=== PATIENT | male | born 1960 | race African-American/Black ===

== ENCOUNTER 2018-12-31 20:59 | Emergency (ER) ==
[2018-12-31 21:15] VITALS: BP 133/80; TEMP 96.8; BMI 22.8
[2018-12-31] MEDS ORDERED: SODIUM CHLORIDE 1,000 ML IV STA (21:26)
--- NOTE | 2018-12-31 23:07 | ED.PDOC ---
General ED Provider: Dr. ARACELI MCADAMS-ER Chief Complaint: Weakness Stated Complaint: ' i think i overdid it--went walking in heat and humidity today and got overheated Time Seen by Physician: 21:05 Mode of Arrival: Wheelchair Information Source: Patient Exam Limitations: No limitations Primary Care Provider: DEEP WHITT Nursing and Triage Documentation Reviewed and Agree: Yes Does patient meet sepsis criteria?: No System Inflammatory Response Syndrome: Not Applicable Sepsis Protocol: For patient's 13 years and over: Temp is 96.8 and below OR 101 and greater Pulse >90 BPM Resp >20/minute Acutely Altered Mental Status Are patient's symptoms suggestive of a new infection, such as: -Pneumonia -Skin, Soft Tissue -Endocarditis -UTI -Bone, Joint Infection -Implantable Device -Acute Abdominal Infection -Wound Infection -Meningitis -Blood Stream Catheter Infection -Unknown Miscellaneous Complaint Exam - Complex/Multi-System Complaint/Exam Onset/Duration: an hour Symptoms Are: Still present Initial Severity: Mild Current Severity: Mild Location of Pain: no pain Associated Signs and Symptoms: Reports: Weakness. Denies: Decreased responsiveness, Confusion, Agitation, Dizziness, Syncope, Headache, Short of air , Cough, Wheezing, Hemoptysis, Chest pain, Palpitations, Edema, Nausea, Vomiting , Diarrhea, Abdominal pain, Back pain, Dysuria, Hematemesis, Melena, Decreased oral intake, Fever, Diaphoresis, Immunocompromised, Anticoagulation Therapy, Recent medication changes, Indwelling medical scheduler, Prior MRSA, Prior VRE, Recent trauma, Remote trauma Recent Echo/LV Function: No JVD Present: No Tachypnea Present: No Stridor Present: No Abdominal Findings: Present: Normal findings Glascow Coma Scale (see protocol): 15 Meningeal Signs Positive: No Focal Weakness: Present: None Focal Sensory Loss: Present: None Gait: Normal Gag Reflex Present: No Babinski Sign: Negative Right, Negative Left Skin Findings: Present: Normal findings Joint Swelling Present: No In-Dwelling Device Present: No Differential Diagnosis: Metabolic Abnormality, Other Quality Indicator For Non-Traumatic Chest Pain/Syncope: EKG Performed Review of Systems - Review Of Systems Constitutional: Reports: Weakness Eyes: Reports: No symptoms Ears, Nose, Mouth, Throat: Reports: No symptoms Respiratory: Reports: No symptoms Cardiac: Reports: No symptoms GI: Reports: No symptoms : Reports: No symptoms Musculoskeletal: Reports: No symptoms Skin: Reports: No symptoms Neurological: Reports: No symptoms Endocrine: Reports: No symptoms Hematologic/Lymphatic: Reports: No symptoms All Other Systems: Reviewed and Negative Past Medical History - Past Medical History Previously Healthy: No Endocrine: Reports: Unknown Cardiovascular: Reports: Unknown Respiratory: Reports: Other Hematological: Reports: Anemia Gastrointestinal: Reports: Liver Genitourinary: Reports: Unknown Neuro/Psych: Reports: Unknown Musculoskeletal: Reports: Unknown Cancer: Reports: Unknown - Surgical History General Surgical History: Reports: Unknown - Family History Family History: Reports: Unknown - Social History Smoking Status: Never smoker Hx Substance Use: No Alcohol Screening: None - Immunizations Tetanus Shot up to Date: No (unknown) Physical Exam - Physical Exam Appearance: Well-appearing, No pain distress, Well-nourished Eyes: HEIDI, EOMI, Conjunctiva clear ENT: Ears normal, Nose normal, Oropharynx normal Neck: Supple Respiratory: Airway patent, Breath sounds clear, Breath sounds equal, Respirations nonlabored Cardiovascular: RRR, Pulses normal, No rub, No murmur GI/: Soft, Nontender, No masses, Bowel sounds normal, No Organomegaly Musculoskeletal: Normal strength Skin: Warm, Dry, Normal color Neurological: Sensation intact, Motor intact, Reflexes intact, Cranial nerves intact, Alert, Oriented Psychiatric: Affect appropriate, Mood appropriate Interpretation - EKG Interpretation Time of EKG #1: 23:08 Rate: Normal Rhythm: Sinus Ectopy: None Gal[place]: NL ST Segment: Normal Interpretation: nsr Re-Evaluation - Re-Evaluation Time of Re-Evaluation: 23:08 Status: Improved Vital Signs Stable: Yes Pain Level: 0 Appearance: NAD Lungs: Clear Skin: Warm and Dry Neuro: Alert and Oriented X3 CV: RRR Additional Comments: feeling much better Critical Care Note - Critical Care Note Total Time (mins): 0 Course - Course Hematology/Chemistry: 12/31/18 21:30 12/31/18 21:30 Orders, Labs, Meds: Lab Review 12/31/18 12/31/18 12/31/18 21:26 21:30 21:30 WBC 5.06 RBC 3.87 L Hgb 11.7 L Hct 35.9 L MCV 92.8 MCH 30.2 MCHC 32.6 RDW Coeff of Rg 14.1 Plt Count 190 Immature Gran % (Auto) 0.8 Neut % (Auto) 72.3 Lymph % (Auto) 16.8 [place] % (Auto) 8.5 Eos % (Auto) 0.8 Baso % (Auto) 0.8 Immature Gran # (Auto) 0.0 Neut # (Auto) 3.7 Lymph # (Auto) 0.9 [place] # (Auto) 0.4 Eos # (Auto) 0.0 Baso # (Auto) 0.0 Sodium 139.6 Potassium 3.80 Chloride 103.5 Carbon Dioxide 25.7 Anion Gap 14.20 BUN 22.7 H Creatinine 0.95 Estimated GFR (MDRD) 99.00 BUN/Creatinine Ratio 23.89 Glucose 106.9 H Calcium 9.17 Total Bilirubin 0.95 AST 85.6 H ALT 70.6 H Alkaline Phosphatase 474.1 H Total Creatine Kinase 49.6 L Troponin I < 0.012 Total Protein 7.28 Albumin 4.14 Globulin 3.14 Albumin/Globulin Ratio 1.31 Urine Color Urine Clarity Urine pH Ur Specific [place] Urine Protein Urine Glucose (UA) Urine Ketones Urine Blood Urine Nitrite Urine Bilirubin Urine Urobilinogen Ur Leukocyte Esterase Urine Microscopic RBC Ur Squamous Epith Cells Urine Mucus 12/31/18 22:25 WBC RBC Hgb Hct MCV MCH MCHC RDW Coeff of Rg Plt Count Immature Gran % (Auto) Neut % (Auto) Lymph % (Auto) [place] % (Auto) Eos % (Auto) Baso % (Auto) Immature Gran # (Auto) Neut # (Auto) Lymph # (Auto) [place] # (Auto) Eos # (Auto) Baso # (Auto) Sodium Potassium Chloride Carbon Dioxide Anion Gap BUN Creatinine Estimated GFR (MDRD) BUN/Creatinine Ratio Glucose Calcium Total Bilirubin AST ALT Alkaline Phosphatase Total Creatine Kinase Troponin I Total Protein Albumin Globulin Albumin/Globulin Ratio Urine Color Yellow Urine Clarity Clear Urine pH 6.0 Ur Specific [place] 1.020 Urine Protein Negative Urine Glucose (UA) Negative Urine Ketones Negative Urine Blood Trace-intact Urine Nitrite Negative Urine Bilirubin Negative Urine Urobilinogen 1.0 Ur Leukocyte Esterase Negative Urine Microscopic RBC 0-2 Ur Squamous Epith Cells 2-5 Urine Mucus 2+ Orders Category Date Time Status EKG-(ED ONLY) Stat CARDIO 12/31/18 21:25 Completed ED ADMINISTRATIVE STAFF SUPERVISOR APPLIED .ONCE EMERGENCY 12/31/18 21:25 Active ED IV/MEDIPORT/POWERPORT .ONCE EMERGENCY 12/31/18 21:26 Active CBC W/ AUTO DIFF Stat LAB 12/31/18 21:30 Completed COMPREHENSIVE METABOLIC PANEL Stat LAB 12/31/18 21:30 Completed CREATINE KINASE Stat LAB 12/31/18 21:26 Completed TROPONIN I Stat LAB 12/31/18 21:26 Completed URINALYSIS C & S IF INDICATED Stat LAB 12/31/18 22:25 Completed 0.9 % Sodium Chloride [Saline Flush] MEDS 12/31/18 21:25 Ordered 1 syr IVF PRN PRN Sodium Chloride 0.9% [Sodium Chloride] 1,000 ml MEDS 12/31/18 21:26 Discontinued IV BOLUS Medications Generic Name Dose Route Start Last Admin Trade Name Freq PRN Reason Stop Dose Admin Sodium Chloride 1 syr 12/31/18 21:25 Saline Flush IVF PRN PRN To flush IV Discontinued Medications Generic Name Dose Route Start Last Admin Trade Name Freq PRN Reason Stop Dose Admin Sodium Chloride 1,000 mls @ 1,000 mls/hr 12/31/18 21:26 12/31/18 22:07 Sodium Chloride IV 12/31/18 22:25 1,000 mls/hr BOLUS STA Administration Vital Signs: Temp Pulse Resp BP Pulse Ox 12/31/18 21:00 96.8 F L 97 H 20 133/80 97 Departure - Departure Time of Disposition: 23:08 Disposition: HOME SELF-CARE Discharge Problem: Heat exhaustion Qualifiers: Encounter type: initial encounter Qualified Code(s): T67.5XXA - Heat exhaustion , unspecified, initial encounter Instructions: Heat Exhaustion (ED) Condition: Good Pt referred to PMD for follow-up: Yes IPMP verified?: No Allergies/Adverse Reactions: Allergies No Known Allergies Allergy (Unverified 12/31/18 21:15) Home Medications: Ambulatory Orders Lisinopril 10 mg PO DAILY 12/31/18 Omeprazole [Prilosec] 20 mg PO QDAC 12/31/18 Disposition Discussed With: Patient, Family
== END 2018-12-31 23:14 | disposition home or self-care (01) ==
LOC: ED 20:59
DX: T67.5XXA Heat exhaustion, unspecified, initial encounter (principal); R53.1 Weakness
CPT/HCPCS: 36415; 80053; 81001; 82550; 84484; 85025; 93005; 93010; 96360; 99283

== ENCOUNTER 2019-06-08 11:18 | Inpatient (IN) ==
[2019-06-08] MEDS ORDERED: LACTATED RINGERS 1,000 ML IV STA (11:29)
[2019-06-08 11:44] LABS: HEMATOCRIT 38.9 % (42.0-52.0)
[2019-06-08] MEDS ORDERED: VASOTEC IV IVP STA (13:10)
--- NOTE | 2019-06-08 13:33 | CT ---
EXAM: CT of the abdomen pelvis with contrast History: Abdominal pain and fever. Comparison: Chest CT 06/08/2019 Technique: Multiplanar CT images through the abdomen pelvis were obtained following administration o f IV contrast Findings: Lung bases are clear. No acute osseous abnormalities. Abnormal heterogeneous appearance of the bones with areas of sclerosis and lucency and chronic-appearing compression deformities within the lower thoracic and lumbar spine. Moderate to severe irregular intrahepatic biliary ductal dilatation. There is a biliary stent seen w hich could be malpositioned test. The stent seen as more proximal than would be expected if this was a common bile duct stent. Pancreas demonstrates no abnormality. Adrenal glands are normal. No rock al masses. 1 cm hypoattenuating lesion within the spleen. No bowel obstruction. No bladder wall th ickening. Prostate is not enlarged. Moderate stool seen distending the rectum. No free air and no ascites. No abdominal aortic aneurysm. No pathologically enlarged lymph nodes. Impression: 1. Intrahepatic biliary ductal dilatation with biliary stent seen in place. There may be underlying cholangitis and there could be an obstructing biliary mass versus malfunctioning stent. Recommend c onsult with physician who placed the stent. 2. No other significant findings
--- NOTE | 2019-06-08 13:38 | ED.PDOC ---
General ED Provider: Dr. LOS PHILLIP Chief Complaint: Weakness Stated Complaint: syncope Time Seen by Physician: 11:20 Mode of Arrival: Stretcher Information Source: Patient Primary Care Provider: DEEP WHITT Nursing and Triage Documentation Reviewed and Agree: Yes Does patient meet sepsis criteria?: No System Inflammatory Response Syndrome: Not Applicable Sepsis Protocol: For patient's 13 years and over: Temp is 96.8 and below OR 101 and greater Pulse >90 BPM Resp >20/minute Acutely Altered Mental Status Are patient's symptoms suggestive of a new infection, such as: -Pneumonia -Skin, Soft Tissue -Endocarditis -UTI -Bone, Joint Infection -Implantable Device -Acute Abdominal Infection -Wound Infection -Meningitis -Blood Stream Catheter Infection -Unknown Neurological Complaint Exam Syncope/Near Syncope Complaint/Exam Onset/Duration: last night he was on the floor for a few hours he denied falling , denied Symptoms Are: Resolved (aox3 upon arrival ) Episodes Lasting: Seconds Number of Episodes: 1 Frequency of Episodes: 1 Episodes Witnessed: No Associated Head Trauma: No Activity at Onset: At rest Aggravating: None Alleviating: Reports Spontaneous resolution Associated Signs and Symptoms: Denies Pain, Decreased oral intake, Vomiting, Diarrhea, GI blood loss, Short of air, Chest pain, Palpitations, Diaphoresis, Lightheadedness, Dizziness, Weakness, AMS, Numbness, Headache (has a history of aneurysm may have had h/a but no pain on arrival), Seizure, Remote head trauma and Recent head trauma Cardiac Risk Factors: Reports Hypertension GI Bleed Risk Factors: Reports None Dysrhythmia Risk Factors: Reports >45 years old and Underlying CAD Related Surgical History: Reports None JVD Present: No Carotid Bruit Present: No Rectal Heme Positive: No Glascow Coma Scale (see protocol): 15 Nystagmus Present: No Gag Reflex Present: Yes Meningeal Signs Positive: No Focal Weakness: Present None Focal Sensory Loss: Present None Gait: Normal [id number]: Normal Findings Babinski Sign: Negative Right and Negative Left Differential Diagnoses: Dysrhythmia, Hypoglycemia, Hypovolemia, Metabolic Reaction, Pulmonary Embolism and Seizure Quality Indicators for Cardiac Chest Pain: EKG in 10min. Quality Indicator For Non-Traumatic Chest Pain/Syncope: EKG Performed Quality Indicators for AMI: EKG in 10min. Review of Systems Review Of Systems Constitutional: Reports Chills, Fever, Malaise, Weakness and Loss of appetite Eyes: Reports No symptoms Ears, Nose, Mouth, Throat: Reports No symptoms Respiratory: Reports Cough and Short of air Cardiac: Reports No symptoms GI: Reports Abdominal pain, Nausea and Poor appetite : Reports No symptoms Musculoskeletal: Reports No symptoms Skin: Reports No symptoms Neurological: Reports No symptoms Endocrine: Reports No symptoms Hematologic/Lymphatic: Reports No symptoms All Other Systems: Reviewed and Negative Physical Exam Physical Exam Appearance: Ill-appearing Ill-appearing: Moderate Pain Distress: Mild Eyes: HEIDI, EOMI and Conjunctiva clear ENT: Ears normal, Nose normal and Oropharynx normal Neck: Supple Respiratory: Airway patent, Breath sounds clear, Breath sounds equal and Respirations nonlabored Cardiovascular: RRR, Pulses normal, No rub and No murmur GI/: Soft, Nontender, No masses, Bowel sounds normal and No Organomegaly Musculoskeletal: Normal strength, ROM intact, No edema and No calf tenderness Skin: Warm, Dry and Normal color Neurological: Sensation intact, Motor intact, Reflexes intact, Cranial nerves intact, Alert and Oriented Psychiatric: Affect appropriate and Mood appropriate NIH Stroke Scale 1a. Level of Consciousness: 0=Alert and keenly responsive 1b. Level of Consciousness Questions: 0=Answers correctly to two questions 1c. Level of Consciousness Commands: 0=Performs two tasks correctly 2. Best Gaze: 0=Normal 3. Visual: 0=No visual loss 4. Facial Palsy: 0=Normal 5a. Motor Left Arm: 0=No drift,arm holds 90 degrees for 10 sec., leg 30 degrees for 5 sec. 5b. Motor Right Arm: 0=No drift,arm holds 90 degrees for 10 sec., leg 30 degrees for 5 sec. 6a. Motor Left Le=No drift,arm holds 90 degrees for 10 sec., leg 30 degrees for 5 sec. 6b. Motor Right Le=No drift,arm holds 90 degrees for 10 sec., leg 30 degrees for 5 sec. 7. Limb Ataxia: 0=Absent 8. Sensory: 0=Normal 9. Best Language: 0=No aphasia 10. Dysarthria: 0=Normal 11. Extincion and Inattention: 0=Normal Stroke Scale Total: 0 Interpretation Radiology Interpretation Radiology Interpretation By: Radiologist Radiology Results: No acute changes Exam Interpreted: CT Scan Nurse Intern Rate: Normal Rhythm: Sinus Ectopy: None EKG Interpretation Rate: Normal Rhythm: Sinus Ectopy: None Lindsay: NL ST Segment: Normal Re-Evaluation Re-Evaluation Time of Re-Evaluation: 13:00 Status: Improved Vital Signs Stable: Yes Pain Level: 0 Appearance: NAD Lungs: Clear Skin: Warm and Dry Neuro: Alert and Oriented X3 CV: RRR Additional Comments: neuro none focal Re-Evaluation Time of Re-Evaluation: 13:36 Status: Improved Vital Signs Stable: Yes Pain Level: 0 Appearance: NAD Skin: Warm and Dry Neuro: Alert and Oriented X3 CV: RRR Physician Notification Case Discussed Physician Notified: pmd Time of Notification: 13:50 (admitt to obs) Critical Care Note Critical Care Note Total Time (mins): 0 Course Course Hematology/Chemistry: 06/08/19 11:26 06/08/19 11:36 Orders, Labs, Meds: Lab Review 06/08/19 06/08/19 06/08/19 11:26 11:32 11:36 WBC 8.43 RBC 4.31 L Hgb 13.1 L Hct 38.9 L MCV 90.3 MCH 30.4 MCHC 33.7 RDW Coeff of Rg 13.3 Plt Count 167 Immature Gran % (Auto) 0.5 Neut % (Auto) 85.4 Lymph % (Auto) 3.7 L [place] % (Auto) 10.3 H Eos % (Auto) 0.0 Baso % (Auto) 0.1 Immature Gran # (Auto) 0.0 Neut # (Auto) 7.2 H Lymph # (Auto) 0.3 L [place] # (Auto) 0.9 Eos # (Auto) 0.0 Baso # (Auto) 0.0 PT 10.4 INR 1.06 Puncture Site O2 Saturation ABG pH ABG pCO2 ABG pO2 ABG HCO3 ABG Total CO2 ABG Base Excess [place] Test FiO2 % Sodium Potassium Chloride Carbon Dioxide Anion Gap BUN Creatinine Estimated GFR (MDRD) BUN/Creatinine Ratio Glucose Lactic Acid Calcium Total Bilirubin AST ALT Alkaline Phosphatase Total Creatine Kinase CK-MB (CK-2) CK-MB (CK-2) % Troponin I Total Protein Albumin Globulin Albumin/Globulin Ratio Procalcitonin TSH Free T4 Influ A Molecular Assay Positive by naat H Influ B Molecular Assay Negative by naat 06/08/19 06/08/19 06/08/19 11:36 11:36 11:36 WBC RBC Hgb Hct MCV MCH MCHC RDW Coeff of Rg Plt Count Immature Gran % (Auto) Neut % (Auto) Lymph % (Auto) [place] % (Auto) Eos % (Auto) Baso % (Auto) Immature Gran # (Auto) Neut # (Auto) Lymph # (Auto) [place] # (Auto) Eos # (Auto) Baso # (Auto) PT INR Puncture Site O2 Saturation ABG pH ABG pCO2 ABG pO2 ABG HCO3 ABG Total CO2 ABG Base Excess [place] Test FiO2 % Sodium 138.6 Potassium 4.18 Chloride 101.2 Carbon Dioxide 27.7 Anion Gap 13.88 BUN 23.9 H Creatinine 0.83 Estimated GFR (MDRD) 115.00 BUN/Creatinine Ratio 28.79 Glucose 111.3 H Lactic Acid 1.92 Calcium 10.12 Total Bilirubin 1.07 AST 70.9 H ALT 49.6 Alkaline Phosphatase 273.4 H Total Creatine Kinase 221.2 H CK-MB (CK-2) Pending CK-MB (CK-2) % Pending Troponin I < 0.012 Total Protein 8.46 H Albumin 4.55 Globulin 3.91 Albumin/Globulin Ratio 1.16 Procalcitonin 0.38 TSH 0.624 Free T4 Influ A Molecular Assay Influ B Molecular Assay 06/08/19 06/08/19 11:36 11:45 WBC RBC Hgb Hct MCV MCH MCHC RDW Coeff of Rg Plt Count Immature Gran % (Auto) Neut % (Auto) Lymph % (Auto) [place] % (Auto) Eos % (Auto) Baso % (Auto) Immature Gran # (Auto) Neut # (Auto) Lymph # (Auto) [place] # (Auto) Eos # (Auto) Baso # (Auto) PT INR Puncture Site R rad O2 Saturation 98.0 ABG pH 7.502 H* ABG pCO2 31.4 L ABG pO2 91.0 ABG HCO3 24.6 ABG Total CO2 26 ABG Base Excess 1 [place] Test + FiO2 % 21.0 Sodium Potassium Chloride Carbon Dioxide Anion Gap BUN Creatinine Estimated GFR (MDRD) BUN/Creatinine Ratio Glucose Lactic Acid Calcium Total Bilirubin AST ALT Alkaline Phosphatase Total Creatine Kinase CK-MB (CK-2) CK-MB (CK-2) % Troponin I Total Protein Albumin Globulin Albumin/Globulin Ratio Procalcitonin TSH Free T4 1.28 Influ A Molecular Assay Influ B Molecular Assay Orders Category Date Time Status ABG DRAW REQUEST Stat CARDIO 06/08/19 11:26 Completed EKG-(ED ONLY) Stat CARDIO 06/08/19 11:25 Completed NPO REMINDER: IMAGING ONCE CARE 06/08/19 11:28 Completed ED IV/MEDIPORT/POWERPORT .ONCE EMERGENCY 06/08/19 11:26 Active ABG Stat LAB 06/08/19 11:45 Completed BLOOD CULTURE Stat LAB 06/08/19 12:04 Received CBC W/ AUTO DIFF Stat LAB 06/08/19 11:26 Completed COMPREHENSIVE METABOLIC PANEL Stat LAB 06/08/19 11:36 Results CREATINE KINASE Stat LAB 06/08/19 11:36 Results FLU A/B MOLECULAR Stat LAB 06/08/19 11:32 Completed FREE T4 (FREE THYROXINE) Stat LAB 06/08/19 11:36 Completed LACTIC ACID Stat LAB 06/08/19 11:36 Completed MOLECULAR GROUP A STREP Stat LAB 06/08/19 11:32 Completed PROCALCITONIN Stat LAB 06/08/19 11:36 Completed PT WITH INR Stat LAB 06/08/19 11:36 Completed THYROID STIMULATING HORMONE Stat LAB 06/08/19 11:36 Results TROPONIN I Stat LAB 06/08/19 11:36 Results URINALYSIS C & S IF INDICATED Stat LAB 06/08/19 11:26 Uncollected 0.9 % Sodium Chloride [Saline Flush] MEDS 06/08/19 11:25 Active 1 syr IVF PRN PRN Enalaprilat Dihydrate [Vasotec IV] MEDS 06/08/19 13:10 Discontinued 0.625 mg IVP ONCE STA Ringers Lactated Solution [Lactated Ringers] 1,000 ml MEDS 06/08/19 11:[address] ABDOMEN/PELVIS W CONTRAST Stat RADS 06/08/19 11:[address] CHEST PE PROTOCOL Stat RADS 06/08/19 11:[address] HEAD W/O CONTRAST Stat RADS 06/08/19 11:29 Taken Medications Generic Name Dose Route Start Last Admin Trade Name Freq PRN Reason Stop Dose Admin Lactated Ringer's 1,000 mls @ 250 mls/hr 06/08/19 11:29 06/08/19 11:43 Lactated Ringers IV 06/08/19 15:28 250 mls/hr BOLUS STA Administration Sodium Chloride 1 syr 06/08/19 11:25 06/08/19 13:32 Saline Flush IVF 1 syr PRN PRN Administration To flush IV Discontinued Medications Generic Name Dose Route Start Last Admin Trade Name Louise PRN Reason Stop Dose Admin Enalaprilat 0.625 mg 06/08/19 13:10 06/08/19 13:27 Vasotec Iv IVP 06/08/19 13:11 0.625 mg ONCE STA Administration Vital Signs: Temp Pulse Resp BP Pulse Ox 06/08/19 11:22 100.0 F H 96 H 20 176/107 H 100 Discharge Plan Discharge Patient Disposition: PLACED OBSERVATION Discharge Problem: Syncope, Influenza A Prescriptions: No Action omeprazole 20 MG capsule,delayed release(DR/EC) 20 mg PO QDAC RF: 0 lisinopril 10 MG tablet 10 mg PO DAILY RF: 0 aspirin, buffered 325 mg Tablet 325 mg PO DAILY RF: 0 alendronate 40 mg Tablet 40 mg PO DAILY RF: 0 Activity Restrictions/Additional Instructions: Please call your Family Physician as soon as possible to schedule a follow-up appointment. ED Provider: LOS PHILLIP Condition: Good
--- NOTE | 2019-06-08 13:46 | CT ---
EXAM: CTA of the chest. History: Short of breath Comparison: CT abdomen pelvis 06/08/2019 Technique: Multiplanar CT images through the thorax were obtained without the administration of IV c ontrast. MIP images and 3-D reconstructions were also acquired. Findings: Heart size is normal. No pericardial effusion. Great vessels are unremarkable. No patho logically enlarged thoracic lymph nodes. No pulmonary arterial filling defects. No consolidation. No pleural fluid and no pneumothorax. No lung masses or lung nodules. For details in the upper abdomen, please see dedicated CT abdomen pelvis done on the same day. Heter ogeneous osseous structures. Chronic-appearing compression deformities and scattered sclerotic and l ucent osseous lesions. Impression: 1. No pulmonary embolism and no evidence for pneumonia. 2. Abnormal heterogeneous osseous structures with sclerotic and lytic lesions seen throughout the sp ine concerning for metastasis. Paget's disease is within the differential diagnosis. Recommend matt elation with an MRI of the thoracic and lumbar spine nonemergent
--- NOTE | 2019-06-08 13:53 | CT ---
Exam: CT brain without contrast Date: 06/08/2019 Comparison: None History: Headache. Vomiting last night. Weakness. History of aneurysm in the right side of the he ad. TECHNIQUE: Axial CT images through the brain were obtained without IV contrast. FINDINGS: No craniotomy changes identified. There is a 9 x 8.5 mm partially calcified round mass an terior to the medulla new seen along the course of the basilar artery. This is indeterminate and may represent a basilar artery aneurysm or posterior inferior cerebellar artery aneurysm. The basilar t ip is also prominent, which may be secondary to an aneurysm. No intracranial mass, mass effect, hemo rrhage, or abnormal extra-axial fluid collection. The ventricles are moderately enlarged on a propor tion to the cerebral sulci. No obstructing mass lesion seen along the fourth ventricular outflow tra cts nor the Sylvian aqueduct. Differential diagnosis includes communicating hydrocephalus or normal pressure hydrocephalus. No CT evidence of acute infarction. There are periventricular and subcortic al white matter hypodensities that are nonspecific and most likely represent small vessel disease. T here are vascular calcifications.There has been bilateral cataract removal. Paranasal sinuses are cl ear. No acute calvarial fracture. Impression: 1. No evidence of acute intracranial infarct or acute intracranial hemorrhage. 2. Moderately enlarged ventricles out of proportion to the cerebral sulci without obstructing mass l esions at the fourth ventricular outflow tracts or the Sylvian aqueduct. Differential diagnosis incl udes communicating hydrocephalus or normal pressure hydrocephalus. 3. Indeterminate 9 x 8.5 mm partially calcified ground mass anterior to the medulla may represent a basilar artery aneurysm or a posterior inferior cerebellar artery aneurysm. Questionable basilar art bisi tip aneurysm. The patient has a reported history of right-sided intracranial aneurysm. A dedica jonathon MRA or CTA of the head is recommended for further evaluation.
[2019-06-08 15:07] VITALS: BMI 24.1
[2019-06-08] MEDS ORDERED: PROCARDIA XL PO STA (15:38)
[2019-06-08] MEDS: SODIUM CHLORIDE 1,000 ML IV SCH (17:57)
[2019-06-09 04:18] LABS: HEMATOCRIT 39.2 % (42.0-52.0)
[2019-06-09] MEDS: PRILOSEC PO SCH (05:49)
[2019-06-09] MEDS ORDERED: ASPIRIN BUFFERED PO SCH (09:00)
[2019-06-09] MEDS: ZESTRIL PO SCH (09:40)
[2019-06-09] MEDS: ASPIRIN EC PO SCH (09:41)
[2019-06-09] MEDS: SODIUM CHLORIDE 1,000 ML IV SCH ×2 (09:44→22:21)
[2019-06-10 05:15] LABS: HEMATOCRIT 41.7 % (42.0-52.0)
[2019-06-10] MEDS: PRILOSEC PO SCH (06:02)
[2019-06-10] MEDS: ZESTRIL PO SCH (09:01)
[2019-06-10] MEDS: ASPIRIN EC PO SCH (09:01)
[2019-06-10] MEDS: SODIUM CHLORIDE 1,000 ML IV SCH ×2 (12:15→19:59)
[2019-06-10] MEDS ORDERED: ROCEPHIN 1 GM/50 ML D5W 1 GM/50 ML BAG IV STA (14:57)
[2019-06-10] MEDS ORDERED: TYLENOL PO PRN (14:57)
--- NOTE | 2019-06-10 15:32 | DI ---
EXAM: Chest one view HISTORY: Fever COMPARISON: CT chest 06/08/2019 TECHNIQUE: Single view of the chest was performed FINDINGS: Patient chin overlies left lung apex. No definite airspace consolidation. Left-sided car diac pacer. No pleural effusion or visible pneumothorax. The heart is normal in size. The mediasti nal contour is normal. Sclerotic osseous lesions are better seen on recent CT. IMPRESSION: 1. No definite acute cardiopulmonary process. 2. Sclerotic osseous lesions are seen on recent CT.
[2019-06-10] MEDS: TAMIFLU PO SCH (21:12)
[2019-06-11] MEDS: SODIUM CHLORIDE 1,000 ML IV SCH ×3 (01:00→14:28)
[2019-06-11] MEDS: PRILOSEC PO SCH (05:47)
[2019-06-11] MEDS ORDERED: K-DUR PO STA (08:55)
[2019-06-11] MEDS: ASPIRIN EC PO SCH (09:07)
[2019-06-11] MEDS: ZESTRIL PO SCH (09:07)
[2019-06-11] MEDS: TAMIFLU PO SCH ×2 (09:07→20:43)
--- NOTE | 2019-06-11 10:54 | RS.OTINEVL ---
Subjective - Patient information Date of Evaluation: 06/11/19 Date of Arrival on Unit: 06/08/19 Diagnosis: Flu A PRECAUTIONS: Weakness, Incontinent Usual Living Arrangement: Alone Living Arrangement Comments: LIVES AT [facility] Home Environment: Apartment Medical History Comments:: Influenza A, pacemaker, abdominal surgery all this year. Surgical History Comments:: pacemaker, and abdominal surgery. Subjective Information/ Patient Comments:: Pt reports he has had surgery on his abdomen, a pacemaker inserted and now he has the flu which has really increased his weakness. This has impacted his ability to complete his self cares independently. - Level of function Prior to this admission, the patient could do the following:: Independent Selfcare, Independent ADL's, Participated in Social Activities Outside home Abilities prior to this admission: Pt was able to cook, and go shopping with his [id number]. Pt was able to walk and to complete his self cares independently prior to the flu. Current Level of Function: Partially Dependent Current Equipment Used at Home: Rolling WALKER Pain Assessment - Pain Pain Score: 0 Interventions - Objective Patient Orientation: Person, Place, Situation Current Interventions: IV's Observation: Pt is very weak and requires extra time to complete self cares. Pt has weakness in hands and has a difficult time opening the small containers. Interventions - ROM Right Upper Extremity AROM: WFL's Left Upper Extremity AROM: Slight limitation - Strength Right Upper Extremity Strength: Mild Weakness Left Upper Extremity Strength: Mild Weakness - Sensation Right Upper Extremity Sensation: Intact/Normal Left Upper Extremity Sensation: Intact/Normal Balance - Sitting Balance Static Sitting Balance: Fair Dynamic Sitting Balance: Fair - Standing Balance Static Standing Balance: Poor Dynamic Standing Balance: Poor ADL Skills - Self Feeding Self Feeding: CGA - Grooming Grooming: CGA - Dressing Dressing LE: Mod Assist - Toilet Management Toileting Management: Mod Assist Functional Mobility - Bed Mobility Rolling R/L: CGA Scooting: CGA Supine to Sit: Min Assist Sit to Supine: Min Assist - Transfers Sit to Stand: Min Assist, 1 person assist Stand to Sit: Min Assist, 1 person assist Stand Pivot Transfers: Min Assist, 1 person assist - Ambulation Weight Bearing Status: FWB Assistive Device Used: Rolling Walker Assistance needed with Ambulation: Min Assist, 1 person assist - Safety Awareness Safety Awareness: Fair LAISHA INDEX SCORE: . Additional Treatment Performed - Time with patient Length of Evaluation: 18 Total treatment time: 15 Activities Would you be interested in leaving your room for activities?: Yes Would you enjoy group activities?: Yes Do you have difficulty with your vision?: No Patient Interests:: Watching Television, Visiting/Socializing Patient Education Patient Education: Education of diagnosis, Home Exercise Program, Education of Plan of Care Teaching Recipient: Patient Teaching Methods: Discussion Assessment Problem List:: Decreased level of function, Requires training/education, Decreased safety/Risk of falls, Weakness Rehab Potential: Good Further Therapy Indicated?: Yes Evaluation Complexity: HISTORY: Medium, EXAM OF BODY SYSTEMS: Medium, CLINICAL DECISION MAKING: Medium Patient's Goal(s): To get stronger and be able to take care of himself and return home. Short Term Goals - Goals GOAL 1: Pt to increase BUE strength to 4/5 to increase self care management. Goal to be met by: 06/14/19 GOAL 2: Pt to increase activity tolerance to 15 minutes to increase (I). Goal to be met by: 06/14/19 GOAL 3: Pt to increase dyn. std. bal. to Fair+. Goal to be met by: 06/14/19 Residential Goals GOAL 1: Pt to increase BUE strength to 4+/5 to increase self care management. Goal to be met by: 06/18/19 GOAL 2: Pt to increase (I) of self cares to SUP. Goal to be met by: 06/18/19 GOAL 3: Pt to increase functional transfers for self cares to be CGA with RW. Goal to be met by: 06/18/19 Plan Plan of Care: Therapeutic EX, Therapeutic Activity, Self-Care/Home Management Frequency of Treatment: 1-2 X day, as tolerated Duration of Treatment: 1 Week Anticipated Discharge Destination: Residential Care Facility Treatment Diagnosis (ICD 10 Codes): M62.81 Muscle weakness, Z74.1 Need for assistance with personal care. Has the Physician been added for Co-signature?: Yes
[2019-06-11 15:09] VITALS: TEMP 98
[2019-06-12] MEDS: SODIUM CHLORIDE 1,000 ML IV SCH (03:33)
[2019-06-12] MEDS: PRILOSEC PO SCH (05:35)
[2019-06-12] MEDS ORDERED: K-DUR PO STA (06:41)
--- NOTE | 2019-06-12 08:16 | RS.PTINEVL ---
Subjective - Patient information Date of Evaluation: 06/11/19 Date of Arrival on Unit: 06/08/19 Admitted From:: Home Diagnosis: Influenza A, weakness, syncope Usual Living Arrangement: Alone Living Arrangement Comments: lives alone, family assists occasionally. Home Environment: Apartment, Level/No stairs Medical History: Hypertension Medical History Comments:: paget's disease LATEX ALLERGY?: No Medications: see chart Subjective Information/ Patient Comments:: pt states he has gotten very weak with this illness. States he has had increasing difficulty taking care of himself due to weakness. - Level of function Prior to this admission, the patient could do the following:: Independent Selfcare, Independent ADL's Abilities prior to this admission: ADLs and walking were becoming more difficult with this illness. Current Equipment Used at Home: Rolling WALKER Interventions - Objective Patient Orientation: Person, Place, Time, Situation Current Interventions: IV's, Telemetry Range of Motion - ROM Right Upper Extremity AROM: WFL's Left Upper Extremity AROM: WFL's Right Lower Extremity AROM: WFL's Left Lower Extremity AROM: WFL's Muscle Strength - Muscle Strength Right Upper Extremity Strength: Mild Weakness (grossly 4/5) Left Upper Extremity Strength: Mild Weakness (grossly 4/5) Right Lower Extremity Strength: Mild Weakness (hip flex 4-/5, knee flex/ext 4/5, ankle DF/PF 4/5) Left Lower Extremity Strength: Mild Weakness (hip flex 4-/5, knee flex/ext 4/5, ankle DF/PF 4/5) Sensation - Sensation Right Upper Extremity Sensation: Intact/Normal Left Upper Extremity Sensation: Intact/Normal Right Lower Extremity Sensation: Intact/Normal Left Lower Extremity Sensation: Intact/Normal Palpation Palpation Findings: None/Normal Balance - Sitting Balance and Reactions Static Sitting Balance: Good Dynamic Sitting Balance: Fair - Standing Balance and Reactions Static Standing Balance: Poor Dynamic Standing Balance: Poor Standing Equilibrium Reactions: Delayed Left, Delayed Right Standing Protective Reactions: Delayed Left, Delayed Right Functional Mobility - Bed Mobility Rolling R/L: CGA Supine to Sit: CGA - Transfers Sit to Stand: CGA Stand to Sit: CGA - Safety Awareness Safety Awareness: Fair LAISHA INDEX SCORE: n/a Ambulation - Ambulation Assistive Device Used: Rolling Walker Orthotic/Prosthetic Device: No Distance: 20ft x 2 Assistance needed with Ambulation: CGA Gait Deviations: Forward posture, Short stride Ambulation Comments: pt amb with decreased step length, flexed posture, with 2 episodes of LOB laterally required CGA to maintain balance. Factors Affecting Ambulation: Decreased Balance, Weakness, Decreased Safety, Limited Endurance Treatment time - Time with patient Length of Evaluation: 21 Total treatment time: 26 Patient Education - Education Patient Education: Activity Modification, Education of Plan of Care Teaching Recipient: Patient Teaching Methods: Discussion, Demonstration Comments: discussion regarding POC. Demonstration regarding safety with transfers and gait. Assessment - Assessment Problem List:: Decreased level of function, Requires training/education, Decreased safety/Risk of falls, Weakness Rehab Potential: Good Further Therapy Indicated?: Yes Candidate for Swing Bed for Therapy Services?: Feel pt may not be a candidate for swing bed due to higher level of function. Evaluation Complexity: HISTORY: Medium, EXAM OF BODY SYSTEMS: Medium, CLINICAL PRESENTATION: Medium, CLINICAL DECISION MAKING: Medium Patient's Goal(s): be able to take care of myself Short Term Goals GOAL #1: pt demonstrate independence with rolling and scooting in bed. Goal to be met by: 06/13/19 GOAL #2: Sup to/from sit SBA Goal to be met by: 06/13/19 GOAL #3: Sit to/from stand SBA Goal to be met by: 06/13/19 GOAL #4: pt amb with rwx 50ft with CGA to SBA no LOB Goal to be met by: 06/13/19 Hand Alterations Seamstress Goals GOAL #1: pt amb functional household distances independently Goal to be met by: 06/15/19 GOAL #2: Sup to/from sit to/from stand independently Goal to be met by: 06/15/19 GOAL #3: Dyn stand balance fair Goal to be met by: 06/15/19 Plan Plan of Care: Therapeutic EX, Therapeutic Activity Other:: gait training Frequency of Treatment: 1-2 X day, as tolerated Duration of Treatment: 4 days Anticipated Discharge Destination: home vs LTC Treatment Diagnosis (ICD 10 Codes): difficulty walking R 26.2. Impaired balance R 26.81. muscle weakness M 62.81 Has the Physician been added for Co-signature?: Yes
[2019-06-12] MEDS: ASPIRIN EC PO SCH (08:33)
[2019-06-12] MEDS: TAMIFLU PO SCH (08:34)
[2019-06-12] MEDS: ZESTRIL PO SCH (08:34)
[2019-06-12 14:12] VITALS: BP 141/96
[2019-06-12] MEDS ORDERED: TAMIFLU PO ONE (18:11)
[2019-06-13] MEDS ORDERED: ALENDRONATE PO SCH (09:00)
--- NOTE | 2019-06-14 08:41 | HP ---
CHIEF COMPLAINT: He has been real weak and he passed out DISCUSSION: This is a 59 year old gentleman with a previous brain aneurysm and a history of Paget's disease of the bone presented to the emergency department with syncope. The patient had a syncopal episode and has felt real weak with low grade fever and diarrhea in the emergency department his evaluation included labs and multiple x-rays. He was found to be positive for Influenza A. He had a temperature of 101. Clinically as well as lab he was mildly dehydrated. The ER doctor felt that the patient needed to be admitted for observation and he was admitted to my services. PAST MEDICAL HISTORY: MEDICATIONS: Omeprazole Lisinopril Aspirin Alendronate 40mg Q daily ALLERGIES: No known drug allergies PAST MEDICAL HISTORY: History of brain aneurysm with clipping of such History of Paget's disease of the bone History of biliary stent placed in the past History of hypertension History of GERD SOCIAL HISTORY: He is previous smoker, denies any current smoking. No alcohol use. FAMILY HISTORY: Reviewed and thought not to be pertinent to discussion. REVIEW OF SYSTEMS: No headaches, visual changes, tinnitus, hemoptysis, abdominal pain, blood in the stool, urinary symptoms or seizures. He has had chest pain, shortness of breath. He has noted to have felt weakness. He has had nonbloody diarrhea. PHYSICAL EXAMINATION: V/S: Temperature 100, pulse 96, respiratory rate 20, blood pressure 176/107, oxygen saturation 100%. HEENT: Pupils are round. NECK: Supple. CHEST: Clear. CARDIOVASCULAR: Regular rate and rhythm. ABDOMEN: Soft, nontender. EXTREMITIES: Distal extremities without cyanosis or edema. ASSESSMENT: 1. Syncope 2. Influenza A PLAN: 1. Admission 2. IV fluids 3. We will follow the patient clinically Please see orders. MTDD
--- NOTE | 2019-06-14 08:48 | PN ---
DATE OF VISIT: 06/09/19 SUBJECTIVE: Mr. Ernandez continues about the same. He has weakness but he is able to eat. PHYSICAL EXAMINATION: VITAL SIGNS: Temperature 98.3, pulse 83, blood pressure 147/90 , respiratory rate and pulse ox 97%. HEENT: Pupils are round. NECK: Supple. CHEST: Clear. CARDIOVASCULAR: Regular rate and rhythm. ABDOMEN: Soft, nontender. EXTREMITIES: Distal extremities without cyanosis or edema. ASSESSMENT: 1. Influenza A 2. Weakness 3. Syncope PLAN: 1. Continue IV fluids support 2. The patient has revealed to me he does not feel that he is able to return home and requires admission to rehab unit. We will ask for social media assistant to look into this. Please see orders. MTDD
--- NOTE | 2019-06-14 08:53 | PN ---
DATE OF VISIT: 06/10/19 SUBJECTIVE: Mr. Valadez continues about the same. He had a temperature up to 102 today. He realized that he was not started on Tamiflu through the emergency department. PHYSICAL EXAMINATION: VITAL SIGNS: Temperature down to 100.0, pulse 80, respiratory rate 18, blood pressure 120/80. HEENT: Pupils are round. NECK: Supple. CHEST: Clear. CARDIOVASCULAR: Regular rate and rhythm. ABDOMEN: Soft, nontender. EXTREMITIES: Distal extremities without cyanosis or edema. ASSESSMENT: 1. Influenza PLAN: 1. We are going to start Tamiflu 2. online services manager will be consulted in regards to senior care placement. Please see orders. MTDD
--- NOTE | 2019-06-14 08:56 | PN ---
DATE OF VISIT: 06/11/19 SUBJECTIVE: Mr. Valadez's temperature did resolve. He is tolerating the Tamiflu well without nausea and vomiting. His diarrhea resolved. We understand that [facility] we will taking him as a patient. REVIEW OF SYSTEMS: PHYSICAL EXAMINATION: VITALS: Temperature 98.6, pulse 80, respiratory rate 16, blood pressure 98/63 HEENT: Pupils are round. NECK: Supple. CHEST: Clear. CARDIOVASCULAR: Regular rate and rhythm. ABDOMEN: Soft, nontender. EXTREMITIES: Distal extremities without cyanosis or edema. ASSESSMENT" 1. Syncope 2. Influenza PLAN: 1. We plan on transferring to [facility] tomorrow for placement Please see orders. MTDD
--- NOTE | 2019-06-14 08:58 | DS ---
PRINCIPAL DIAGNOSIS: 06/12/19 PRINCIPAL DIAGNOSIS: 1. History of brain aneurysm with status post clipping 2. History of pancreatic stent placed 3. History of Paget's disease of the bone 4. Hypertension 5. Influenza A DISCUSSION: This is a 59 year old gentleman with a previous brain aneurysm and a history of Paget's disease of the bone presented to the emergency department with syncope. The patient had a syncopal episode and has felt real weak with low grade fever and diarrhea in the emergency department his evaluation included labs and multiple x-rays. He was found to be positive for Influenza A. He had a temperature of 101. Clinically as well as lab he was mildly dehydrated. The ER doctor felt that the patient needed to be admitted for observation and he was admitted to my services. CLINICAL COURSE: He did well. He was placed into observation. He did defervesce and placed on Tamiflu. He was able to eat and his diarrhea resolved. At this point the patient realized he can not care for himself at home and asked for consideration for admission and to this end he was transferred to [facility]. Please see orders. MTDD
== END 2019-06-12 19:14 | DRG 312 ==
LOC: MEDSURG B 11:18 → ED 11:18 → MEDSURG B 14:21
PROVIDERS: ADMIT Family Medicine; ATTEND Family Medicine

== ENCOUNTER 2020-09-01 15:45 | Observation (INO) ==
[2020-09-01] MEDS ORDERED: ATROVENT HFA INHALER (PER PUFF-WITH SPACER) IH STA (16:00)
[2020-09-01] MEDS ORDERED: TYLENOL PO STA (16:00)
[2020-09-01] MEDS ORDERED: SOLU-MEDROL 125 MG IVP STA (16:00)
[2020-09-01] MEDS ORDERED: SODIUM CHLORIDE 500 ML IV STA (16:00)
[2020-09-01] MEDS ORDERED: VENTOLIN HFA (PER PUFF-WITH SPACER) IH STA (16:00)
[2020-09-01] MEDS ORDERED: CATAPRES PO STA (16:00)
[2020-09-01 16:30] LABS: BASOPHILS % (AUTO) 0.1 % (0.0-3.0); HEMATOCRIT 37.5 % (42.0-52.0); IMMATURE GRANULOCYTE % (AUTO) 0.3 % (0.0-5.0); LYMPHOCYTES # (AUTO) 0.2 K/uL (0.60-3.4); LYMPHOCYTES % (AUTO) 2.3 (10.0-50.0); MEAN CORPUSCULAR HEMOGLOBIN 30.7 pg (27.0-31.0); MEAN CORPUSCULAR HGB CONC 34.7 (31.8-35.4); MEAN CORPUSCULAR VOLUME 88.7 fl (80.0-94.0); MONOCYTES % (AUTO) 0.3 (0-10); PLATELET COUNT 168 10^3/uL (140-440); RDW COEFFICIENT OF VARIATION 13.3 % (11.6-14.8); RED BLOOD COUNT 4.23 10^6/ul (4.70-6.10); WHITE BLOOD COUNT 9.25 K/ul (4.2-10.2)
[2020-09-01 16:38] LABS: ABG PH 7.55 (7.35-7.45)
[2020-09-01 16:42] LABS: ALBUMIN 4.21 g/dL (3.5-5.0); ALKALINE PHOSPHATASE 286.9 U/L (56-119); ASPARTATE AMINO TRANSFERASE 103.3 U/L (17-59); BILIRUBIN,TOTAL 2.18 mg/dL (0.2-1.3); BLOOD UREA NITROGEN 15.9 mg/dL (9-20); CALCIUM 9.81 mg/dL (8.4-10.2); CARBON DIOXIDE 22.9 mmol/L (22-30.0); CHLORIDE 101.8 mmol/L (98-107); CREATININE 0.76 mg/dL (0.60-1.10); GLUCOSE 111.6 mg/dL (74-106); SODIUM 139.5 mmol/L (134.5-145)
[2020-09-01 16:48] LABS: ALANINE AMINOTRANSFERASE 31.4 U/L (0-50)
[2020-09-01 16:53] LABS: TROPONIN I < 0.012 ng/ml (0.0000-0.120)
[2020-09-01] MEDS ORDERED: SODIUM CHLORIDE 1,000 ML IV STA (17:14)
[2020-09-01] MEDS ORDERED: LOPRESSOR IVP STA (17:14)
--- NOTE | 2020-09-01 17:30 | CT ---
EXAM: Chest CTA with contrast 09/01/2020 HISTORY: Shortness of breath, wheezing. TECHNIQUE: Axial CT images were obtained through the chest with the administration of intravenous con trast in accordance with the PE protocol. Coronal, bilateral oblique and sagittal reformatted images were also submitted for interpretation. 3D/MIP images of the pulmonary vasculature were also genera jonathon. All CT scans are performed using dose optimization techniques as appropriate to the performed exam an d includes at least one of the following: Automated exposure control, adjustment of the mA and/or kV according to size, and the use of iterative reconstruction technique. COMPARISON: Chest CT dated 07/06/2019. FINDINGS: There is a left-sided pacemaker with leads terminating in the right atrium and right ventricle. There are prominent streak artifacts from the left upper extremity along with motion artifacts, sever flash limiting the evaluation of the segmental pulmonary arteries. There is no pulmonary embolism in t he main pulmonary arteries. There is bibasilar atelectasis. There is no consolidation, pleural effusion, discreet mass or pneumo thorax. The heart size is normal without pericardial effusion. There are coronary artery calcifications. The thoracic aorta is normal in size. No pathologic lymphadenopathy is identified. There are calcified left hilar lymph nodes. There has been interval removal of the common bile duct stent. Again seen is intrahepatic ductal dil atation, similar to 07/06/2019. Soft tissue structures are unremarkable. Again visualized are stable compression fracture deformities of multiple thoracic vertebrae. Mixed l ytic and sclerotic lesions are noted in the T3, T4, T11-T12 vertebrae, which could represent bone met astasis or Paget's disease. IMPRESSION: No pulmonary embolism in the main pulmonary arteries. Severely limited evaluation of segmental pulmo nary arteries. No consolidation, pleural effusion, or pneumothorax. Interval removal of common bile duct stent. Redemonstration of intrahepatic duct dilatation. Stable compression fracture deformities of multiple thoracic vertebrae. Mixed lytic and sclerotic le sions in the T3, T4, T11-T12 vertebrae, which could represent bone metastasis or Paget's disease. Coronary artery calcifications. All CT scans are performed using dose optimization techniques as appropriate to the performed exam an d include at least one of the following: Automated exposure control, adjustment of the mA and/or kV according t o size, and the use of iterative reconstruction technique.
--- NOTE | 2020-09-01 18:26 | ED.PDOC ---
General ED Provider: Dr. RADHA PADILLA MD Chief Complaint: Weakness Stated Complaint: increasing SOB, wheezing, fever and chills. x worse this pm. Time Seen by Provider: 09/01/20 15:47 Mode of Arrival: Walk-In Information Source: Patient Exam Limitations: No limitations Primary Care Provider: ARACELI MCADAMS Nursing and Triage Documentation Reviewed and Agree: Yes Does patient meet sepsis criteria?: No System Inflammatory Response Syndrome: Not Applicable Sepsis Protocol: For patient's 13 years and over: Temp is 96.8 and below OR 101 and greater Pulse >90 BPM Resp >20/minute Acutely Altered Mental Status Are patient's symptoms suggestive of a new infection, such as: -Pneumonia -Skin, Soft Tissue -Endocarditis -UTI -Bone, Joint Infection -Implantable Device -Acute Abdominal Infection -Wound Infection -Meningitis -Blood Stream Catheter Infection -Unknown Respiratory Complaint Exam Shortness of Air Complaint/Exam Onset/Duration: 1 day Symptoms Are: Still present Timing: Constant Initial Severity: Mild Current Severity: Moderate Character: Reports Dyspnea at rest and Dyspnea on exertion Aggravating: Reports None Alleviating: Reports Bronchodilators Associated Signs and Symptoms: Reports Wheezing, Fever and Chills History of Healthcare-Acquired Pneumonia: No Cardiac Risk Factors: Reports Hypertension Home Oxygen Use: No Recent Stress Test: No Recent Echo/LV Function: No Respiratory Distress: Moderate Stridor Present: No Tracheal Deviation: No Subcutaneous Emphysema: No Accessory Muscle Use: Yes Retractions: Intercostal Diminished Breath Sounds: No Unable to Speak Full Sentences: No Fatigue: No Leg Swelling: No Radha's Sign Present: No Grunting Respirations: No Kussmaul Respirations: No Differential Diagnoses: Asthma, COPD Exacerbation, Pneumonia, Pulmonary Embolism, SARS, Bronchitis, Bronchospasm and URI Review of Systems Review Of Systems Constitutional: Reports Chills, Fever and Sweats Eyes: Reports No symptoms Ears, Nose, Mouth, Throat: Reports No symptoms Respiratory: Reports Short of air and Wheezing Cardiac: Reports Palpitations GI: Reports No symptoms and Nausea : Reports No symptoms Musculoskeletal: Reports No symptoms Skin: Reports No symptoms Neurological: Reports No symptoms Endocrine: Reports No symptoms Hematologic/Lymphatic: Reports No symptoms All Other Systems: Reviewed and Negative [facility] Medical History (Updated 09/01/20 @ 18:43 by RADHA PADILLA MD) Acid reflux Aneurysm History of biliary stent insertion Hypercholesteremia Hypertension Osteoarthritis Pacemaker Paget disease of bone Family History Other No known health problems Social History Smoking and tobacco status: Never smoker Alcohol intake: current Alcohol intake frequency: holidays/special occasions only Physical Exam Physical Exam Appearance: Reports Ill-appearing and Well-nourished Ill-appearing: Moderate Pain Distress: None Eyes: Reports HEIDI, EOMI and Conjunctiva clear ENT: Reports Ears normal, Nose normal and Oropharynx normal Neck: Supple Respiratory: Reports Airway patent, Breath sounds equal, Rhonchi, Wheezes and Retractions Cardiovascular: Reports RRR, No rub, No murmur and Tachycardia GI/: Reports Soft, Nontender, No masses, Bowel sounds normal and No Organomegaly Musculoskeletal: Reports Normal strength, ROM intact, No edema and No calf tenderness Skin: Reports Warm, Dry and Normal color Neurological: Reports Sensation intact, Motor intact, Reflexes intact, Cranial nerves intact, Alert and Oriented Psychiatric: Reports Affect appropriate Interpretation Radiology Interpretation Radiology Interpretation By: Radiologist Exam Interpreted: CT Scan Re-Evaluation Re-Evaluation Time of Re-Evaluation: 16:45 Status: Improved Vital Signs Stable: Yes Pain Level: 0 Lungs: Other (mild rhonchi and wheezes.) Skin: Warm and Dry Neuro: Alert and Oriented X3 CV: RRR Critical Care Note Critical Care Note Total Critical Care Time (mins): 30 Course Course Hematology/Chemistry: 09/01/20 16:23 09/01/20 16:23 Orders, Labs, Meds: Lab Review 09/01/20 09/01/20 09/01/20 16:09 16:15 16:23 WBC 9.25 RBC 4.23 L Hgb 13.0 L Hct 37.5 L MCV 88.7 MCH 30.7 MCHC 34.7 RDW Coeff of Rg 13.3 Plt Count 168 Immature Gran % (Auto) 0.3 Neut % (Auto) 97.0 H Lymph % (Auto) 2.3 L [place] % (Auto) 0.3 Eos % (Auto) 0.0 Baso % (Auto) 0.1 Neut # (Auto) 9.0 H Lymph # (Auto) 0.2 L [place] # (Auto) 0.0 L Eos # (Auto) 0.0 Baso # (Auto) 0.0 Immature Gran # (Auto) 0.0 Puncture Site Rrad Base Excess -0.5 O2 Saturation 93.5 L ABG pH 7.55 H* ABG pCO2 25.0 L ABG pO2 59.0 L* ABG HCO3 21.9 ABG Total CO2 22.7 [place] Test + Hemoglobin 1.3 Oxyhemoglobin 91.8 L Carboxyhemoglobin 3.3 H Total Hemoglobin 12.5 O2 Delivery Device Ra FiO2 % 21.0 Sodium Potassium Chloride Carbon Dioxide Anion Gap BUN Creatinine Estimated GFR (MDRD) BUN/Creatinine Ratio Glucose Calcium Total Bilirubin AST ALT Alkaline Phosphatase Troponin I Total Protein Albumin Globulin Albumin/Globulin Ratio Adenovirus (PCR) Not detected B. pertussis DNA (PCR) Not detected B.parapertussis DNA PCR Not detected C. pneumoniae DNA (PCR) Not detected Coronavirus OC43 (PCR) Not detected Coronavirus HKU1 (PCR) Not detected Coronavirus 229E (PCR) Not detected Coronavirus NL63 (PCR) Not detected Human Metapneumovir PCR Not detected Influenza Type A (PCR) Not detected Influenza B (RT-PCR) Not detected M. pneumoniae (PCR) Not detected Parainfluenza 1 (PCR) Not detected Parainfluenza 2 (PCR) Not detected Parainfluenza 3 (PCR) Not detected Parainfluenza 4 (PCR) Not detected RSV (PCR) Not detected Entero/Rhino (PCR) Not detected SARS-CoV-2 (PCR) Not detected 09/01/20 16:23 WBC RBC Hgb Hct MCV MCH MCHC RDW Coeff of Rg Plt Count Immature Gran % (Auto) Neut % (Auto) Lymph % (Auto) [place] % (Auto) Eos % (Auto) Baso % (Auto) Neut # (Auto) Lymph # (Auto) [place] # (Auto) Eos # (Auto) Baso # (Auto) Immature Gran # (Auto) Puncture Site Base Excess O2 Saturation ABG pH ABG pCO2 ABG pO2 ABG HCO3 ABG Total CO2 [place] Test Hemoglobin Oxyhemoglobin Carboxyhemoglobin Total Hemoglobin O2 Delivery Device FiO2 % Sodium 139.5 Potassium 3.70 Chloride 101.8 Carbon Dioxide 22.9 Anion Gap 18.50 BUN 15.9 Creatinine 0.76 Estimated GFR (MDRD) 127.00 BUN/Creatinine Ratio 20.92 Glucose 111.6 H Calcium 9.81 Total Bilirubin 2.18 H AST 103.3 H ALT 31.4 Alkaline Phosphatase 286.9 H Troponin I < 0.012 Total Protein 8.10 Albumin 4.21 Globulin 3.89 Albumin/Globulin Ratio 1.08 Adenovirus (PCR) B. pertussis DNA (PCR) B.parapertussis DNA PCR C. pneumoniae DNA (PCR) Coronavirus OC43 (PCR) Coronavirus HKU1 (PCR) Coronavirus 229E (PCR) Coronavirus NL63 (PCR) Human Metapneumovir PCR Influenza Type A (PCR) Influenza B (RT-PCR) M. pneumoniae (PCR) Parainfluenza 1 (PCR) Parainfluenza 2 (PCR) Parainfluenza 3 (PCR) Parainfluenza 4 (PCR) RSV (PCR) Entero/Rhino (PCR) SARS-CoV-2 (PCR) Orders Category Date Time Status ABG DRAW REQUEST Stat CARDIO 09/01/20 16:01 Completed EKG-(ED ONLY) Stat CARDIO 09/01/20 16:00 Completed METERED DOSE INHALATION Routine CARDIO 09/01/20 16:04 Completed NPO REMINDER: IMAGING ONCE CARE 09/01/20 16:02 Active ED IV/MEDIPORT/POWERPORT .ONCE EMERGENCY 09/01/20 16:00 Active ABG COOX Stat LAB 09/01/20 16:09 Completed BLOOD CULTURE (ED ONLY) Stat LAB 09/01/20 16:38 Received CBC W/ AUTO DIFF Stat LAB 09/01/20 16:23 Completed COMPREHENSIVE METABOLIC PANEL Stat LAB 09/01/20 16:23 Completed RESPIRATORY PANEL 2.1 (PCR) Stat LAB 09/01/20 16:15 Completed TROPONIN I Stat LAB 09/01/20 16:23 Completed URINALYSIS C & S IF INDICATED Stat LAB 09/01/20 16:00 Uncollected 0.9 % Sodium Chloride [Saline Flush] MEDS 09/01/20 16:00 Active 1 syr IVF PRN PRN Acetaminophen [Tylenol] MEDS 09/01/20 16:00 Discontinued 650 mg PO ONCE STA Albuterol Inhaler(with Spacer) [Ventolin Hfa (Per Puff- MEDS 09/01/20 16:00 D iscontinued with Spacer)] 2 puff IH ONCE STA Clonidine HCl [Catapres] MEDS 09/01/20 16:00 Discontinued 0.2 mg PO ONCE STA Ipratropium Inhaler(Spacer) [Atrovent Hfa Inhaler (Per MEDS 09/01/20 16:00 Discontinued Puff-with Spacer)] 2 puff IH ONCE STA Methylprednisolone Sod Succ/Pf [Solu-Medrol 125 mg] MEDS 09/01/20 16:00 Discontinued 125 mg IVP ONCE STA Metoprolol Tartrate [Lopressor] MEDS 09/01/20 17:14 Discontinued 2.5 mg IVP ONCE STA Sodium Chloride 0.9% [Sodium Chloride] 1,000 ml MEDS 09/01/20 17:14 Active IV 125 mls/hr Sodium Chloride 0.9% [Sodium Chloride] 500 ml MEDS 09/01/20 16:[address] CHEST PE PROTOCOL Stat RADS 09/01/20 16:00 Completed Medications Generic Name Dose Route Start Last Admin Trade Name Freq PRN Reason Stop Dose Admin Sodium Chloride 1,000 mls @ 125 mls/hr 09/01/20 17:14 Sodium Chloride IV 09/02/20 01:13 .Q8H STA Sodium Chloride 1 syr 09/01/20 16:00 0.9% Sodium Chloride 10 Ml Disp.Syrin IVF PRN PRN To flush IV Discontinued Medications Generic Name Dose Route Start Last Admin Trade Name Freq PRN Reason Stop Dose Admin Acetaminophen 650 mg 09/01/20 16:00 09/01/20 16:39 Acetaminophen 325 Mg Tablet PO 09/01/20 16:01 650 mg ONCE STA Administration Albuterol Sulfate 2 puff 09/01/20 16:00 09/01/20 16:40 Albuterol Sulfate (Ventolin Hfa) 18 Gm 1 Puff With Spacer IH 09/01/20 16:01 2 puff ONCE STA Administration Clonidine 0.2 mg 09/01/20 16:00 09/01/20 16:40 Clonidine Hcl 0.1 Mg Tablet PO 09/01/20 16:01 0.2 mg ONCE STA Administration Sodium Chloride 500 mls @ 500 mls/hr 09/01/20 16:00 09/01/20 16:39 Sodium Chloride IV 09/01/20 16:59 250 mls/hr BOLUS STA Administration Ipratropium [place] 2 puff 09/01/20 16:00 09/01/20 16:39 Ipratropium [place] 12.9 Gm Hfa Inhaler Per Puff With Spacer IH 09/01/20 16:01 2 puff ONCE STA Administration Methylprednisolone Sodium Succinate 125 mg 09/01/20 16:00 09/01/20 16:40 Methylprednisolone Sod Succ/Pf 125 Mg/2 Ml Vial IVP 09/01/20 16:01 125 mg ONCE STA Administration Metoprolol Tartrate 2.5 mg 09/01/20 17:14 Metoprolol Tartrate 5 Mg/5 Ml Vial IVP 09/01/20 17:15 ONCE STA Vital Signs: Temp Pulse Resp BP Pulse Ox 09/01/20 15:47 99.1 F 116 H 24 180/126 H 92 L Discharge Plan Discharge Patient Disposition: ADMITTED INPATIENT Discharge Problem: Bronchitis, Acute viral syndrome ED Provider: RADHA PADILLA Condition: Serious Physician Progress Note: []Pt was d/w Dr Mcadams: for admission.
[2020-09-01] MEDS: VENTOLIN HFA (PER PUFF-WITH SPACER) IH SCH (21:00)
[2020-09-01 21:08] VITALS: BMI 24.9
[2020-09-01] MEDS: ROCEPHIN 1 GM/50 ML D5W 1 GM/50 ML BAG IV SCH (21:43)
[2020-09-01] MEDS: LIPITOR PO SCH (21:43)
[2020-09-01] MEDS: SODIUM CHLORIDE 1,000 ML IV SCH (21:47)
[2020-09-02] MEDS: SOLU-MEDROL 125 MG IVP SCH ×4 (00:35→18:22)
[2020-09-02] MEDS: ATROVENT HFA INHALER (PER PUFF-WITH SPACER) IH SCH ×5 (00:45→23:04)
[2020-09-02] MEDS: VENTOLIN HFA (PER PUFF-WITH SPACER) IH SCH ×5 (00:45→23:04)
[2020-09-02] MEDS: SODIUM CHLORIDE 1,000 ML IV SCH ×3 (05:10→19:49)
[2020-09-02] MEDS: LASIX TAB PO SCH (05:46)
[2020-09-02] MEDS: PRILOSEC PO SCH ×2 (05:46→17:18)
[2020-09-02 05:54] LABS: HEMATOCRIT 33.9 % (42.0-52.0); HEMOGLOBIN 11.3 g/dl (14.0-18.0); MEAN CORPUSCULAR HEMOGLOBIN 30.1 pg (27.0-31.0); MEAN CORPUSCULAR HGB CONC 33.3 (31.8-35.4); MEAN CORPUSCULAR VOLUME 90.2 fl (80.0-94.0); PLATELET COUNT 140 10^3/uL (140-440); RDW COEFFICIENT OF VARIATION 13.3 % (11.6-14.8); RED BLOOD COUNT 3.76 10^6/ul (4.70-6.10); WHITE BLOOD COUNT 13.19 K/ul (4.2-10.2)
[2020-09-02 05:56] LABS: BILIRUBIN,URINE Negative (NEGATIVE); CLARITY,URINE Clear (CLEAR); COLOR,URINE Yellow (YELLOW); GLUCOSE, URINE (UA) Negative (NEGATIVE); KETONES,URINE Negative (NEGATIVE); LEUKOCYTE ESTERASE ,URINE Negative (NEGATIVE); NITRITE,URINE Negative (NEGATIVE); PROTEIN,URINE 1+ (NEGATIVE); URINE, BLOOD Negative (NEGATIVE)
[2020-09-02 05:58] LABS: ANISOCYTOSIS NOT PRESENT (NOT PRESENT)
[2020-09-02 06:05] LABS: MUCUS,URINE TRACE (NOT PRESENT); SQUAMOUS EPITHELIAL CELL,UR 0-2 (0-5); URINE RBC, MICROSCOPIC 0-2 (0-2)
[2020-09-02 06:26] LABS: ALANINE AMINOTRANSFERASE 30.9 U/L (0-50); ALBUMIN 3.51 g/dL (3.5-5.0); ALKALINE PHOSPHATASE 219.1 U/L (56-119); ASPARTATE AMINO TRANSFERASE 85.8 U/L (17-59); BILIRUBIN,TOTAL 1.57 mg/dL (0.2-1.3); BLOOD UREA NITROGEN 21.8 mg/dL (9-20); CALCIUM 8.95 mg/dL (8.4-10.2); CARBON DIOXIDE 26.2 mmol/L (22-30.0); CHLORIDE 104.8 mmol/L (98-107); CREATININE 0.76 mg/dL (0.60-1.10); GLUCOSE 160.9 mg/dL (74-106); POTASSIUM 4.23 mmol/L (3.5-5.1); SODIUM 140.2 mmol/L (134.5-145); TOTAL PROTEIN 7.01 g/dL (6.3-8.2)
[2020-09-02] MEDS: CARDIZEM CD PO SCH (08:31)
[2020-09-02] MEDS: ZESTRIL PO SCH (08:31)
[2020-09-02] MEDS: ASPIRIN EC PO SCH (08:31)
[2020-09-02] MEDS: ROCEPHIN 1 GM/50 ML D5W 1 GM/50 ML BAG IV SCH (08:32)
[2020-09-02] MEDS: ALENDRONATE PO SCH (08:32)
[2020-09-02] MEDS: LOVENOX SUBCUT SCH (08:34)
--- NOTE | 2020-09-02 10:26 | RS.PTINEVL ---
Subjective - Patient information Date of Evaluation: 09/02/20 Date of Arrival on Unit: 09/01/20 Admitted From:: Home Diagnosis: bronchitis, acute viral syndrome Usual Living Arrangement: Alone Home Environment: Apartment, Level/No stairs Medical History: Hypertension, Arthritis Medical History Comments:: GERD, paget disease, aneurysm Surgical History Comments:: pacemaker Medications: see chart Subjective Information/ Patient Comments:: pt states that he got weak the other day and had to sit in the floor. States that doesn't know why he got so weak. - Level of function Prior to this admission, the patient could do the following:: Independent Selfcare, Independent ADL's Current Level of Function: Partially Dependent Current Equipment Used at Home: rolling Walker at times Interventions - Objective Patient Orientation: Person, Place, Situation Current Interventions: IV's, Oxygen, Telemetry Observation: pt speech is delayed Range of Motion - ROM Right Upper Extremity AROM: WFL's Left Upper Extremity AROM: WFL's Right Lower Extremity AROM: WFL's Left Lower Extremity AROM: WFL's Muscle Strength - Muscle Strength Right Upper Extremity Strength: Mild Weakness (grossly 4/5) Left Upper Extremity Strength: Mild Weakness (grossly 4/5) Right Lower Extremity Strength: Mild Weakness (hip flex 4-/5, knee flex/ext 4/5, ankle DF/PF 4/5) Left Lower Extremity Strength: Mild Weakness (hip flex 4-/5, knee flex/ext 4/5, ankle DF/PF 4/5) Sensation - Sensation Right Upper Extremity Sensation: Intact/Normal Left Upper Extremity Sensation: Intact/Normal Right Lower Extremity Sensation: Intact/Normal Left Lower Extremity Sensation: Intact/Normal Palpation Palpation Findings: None/Normal Balance - Sitting Balance and Reactions Static Sitting Balance: Fair Dynamic Sitting Balance: Fair - Standing Balance and Reactions Static Standing Balance: Poor Dynamic Standing Balance: Poor Standing Equilibrium Reactions: Delayed Left, Delayed Right Standing Protective Reactions: Delayed Left, Delayed Right Functional Mobility - Bed Mobility Rolling R/L: Min Assist, 1 person assist Supine to Sit: Min Assist, Mod Assist, 1 person assist - Transfers Sit to Stand: Min Assist, 1 person assist Stand to Sit: Min Assist, 1 person assist - Safety Awareness Safety Awareness: Fair LAISHA INDEX SCORE: n/a Ambulation - Ambulation Assistive Device Used: Rolling Walker Orthotic/Prosthetic Device: No Distance: 50ft x 2 Assistance needed with Ambulation: CGA, Min Assist Gait Deviations: Forward posture, Short stride Ambulation Comments: pt amb with slow gait speed, decreased step length, flexed posture. Factors Affecting Ambulation: Decreased Balance, Breathing/O2 Saturation, Weakness, Decreased Safety, Cognitive Status, Limited Endurance Treatment time - Time with patient Length of Evaluation: 19 Total treatment time: 25 Patient Education - Education Patient Education: Activity Modification, Education of Plan of Care Teaching Recipient: Patient Teaching Methods: Discussion Comments: discussion regarding POC as well as safety with transfers. Assessment - Assessment Problem List:: Decreased level of function, Requires training/education, Decreased safety/Risk of falls, Weakness, Cognitive status limits abilities Rehab Potential: Good Further Therapy Indicated?: Yes Candidate for Swing Bed for Therapy Services?: Feel pt may not qualify for swing bed due to higher functional level Evaluation Complexity: HISTORY: Medium, EXAM OF BODY SYSTEMS: Medium, CLINICAL PRESENTATION: Medium, CLINICAL DECISION MAKING: Medium Patient's Goal(s): get stronger and go home Short Term Goals GOAL #1: pt demonstrate independence with rolling and scooting in bed. Goal to be met by: 09/04/20 GOAL #2: Sup to/from sit SBA Goal to be met by: 09/04/20 GOAL #3: Sit to/from stand SBA Goal to be met by: 09/04/20 GOAL #4: pt amb with rwx 140ft with CGA no LOB Goal to be met by: 09/04/20 GOAL #5: Improve strength BLE 4 to 4+/5 Goal to be met by: 09/04/20 Penitentiary Goals GOAL #1: pt amb functional household distances independently Goal to be met by: 09/07/20 GOAL #2: Sup to/from sit to/from stand independently Goal to be met by: 09/07/20 GOAL #3: Improve dyn stand balance fair Goal to be met by: 09/07/20 Plan Plan of Care: Therapeutic EX, Neuromuscular Re-Educ, Therapeutic Activity Other:: gait training Frequency of Treatment: 1-2 X day, as tolerated Duration of Treatment: 5 days Anticipated Discharge Destination: Home Treatment Diagnosis (ICD 10 Codes): impaired balance R 26.81. difficulty walking R 26.2. weakness M62.81 Has the Physician been added for Co-signature?: Yes
[2020-09-02] MEDS: LIPITOR PO SCH (20:23)
[2020-09-03] MEDS: SOLU-MEDROL 125 MG IVP SCH ×4 (00:33→17:44)
[2020-09-03] MEDS: SODIUM CHLORIDE 1,000 ML IV SCH ×3 (00:34→23:05)
[2020-09-03] MEDS: ATROVENT HFA INHALER (PER PUFF-WITH SPACER) IH SCH ×4 (04:55→23:35)
[2020-09-03] MEDS: VENTOLIN HFA (PER PUFF-WITH SPACER) IH SCH ×4 (04:55→23:35)
[2020-09-03 05:04] LABS: HEMOGLOBIN 10.4 g/dl (14.0-18.0); MEAN CORPUSCULAR HEMOGLOBIN 29.9 pg (27.0-31.0); MEAN CORPUSCULAR HGB CONC 33.5 (31.8-35.4); MEAN CORPUSCULAR VOLUME 89.1 fl (80.0-94.0); PLATELET COUNT 139 10^3/uL (140-440); RDW COEFFICIENT OF VARIATION 13.6 % (11.6-14.8); RED BLOOD COUNT 3.48 10^6/ul (4.70-6.10); WHITE BLOOD COUNT 12.29 K/ul (4.2-10.2)
[2020-09-03 05:19] LABS: ANISOCYTOSIS NOT PRESENT (NOT PRESENT)
[2020-09-03 05:23] LABS: ALBUMIN 2.8 g/dL (3.5-5.0); BILIRUBIN,TOTAL 0.6 mg/dL (0.2-1.3); CALCIUM 8.3 mg/dL (8.4-10.2); CREATININE 0.7 mg/dL (0.60-1.10); POTASSIUM 3.7 mmol/L (3.5-5.1); TOTAL PROTEIN 5.9 g/dL (6.3-8.2)
[2020-09-03] MEDS: PRILOSEC PO SCH ×2 (05:46→17:16)
[2020-09-03] MEDS: LASIX TAB PO SCH (05:46)
[2020-09-03] MEDS: CARDIZEM CD PO SCH (09:07)
[2020-09-03] MEDS: ASPIRIN EC PO SCH (09:07)
[2020-09-03] MEDS: LOVENOX SUBCUT SCH (09:07)
[2020-09-03] MEDS: ZESTRIL PO SCH (09:07)
[2020-09-03] MEDS: ALENDRONATE PO SCH (09:13)
[2020-09-03] MEDS: ROCEPHIN 1 GM/50 ML D5W 1 GM/50 ML BAG IV SCH (09:13)
--- NOTE | 2020-09-03 13:44 | CT ---
EXAM: CT Head HISTORY: History of aneurysm, weakness, dizziness, fall COMPARISON: 06/08/2019 TECHNIQUE: CT head performed without contrast FINDINGS: There is nomidline shift or intracranial hemmorhage. Waller white differentiation is preser jamir. There is no extra-axial collection. The ventricles, sulci, and basal cisterns are patent and s ymmetric. Redemonstration of ventriculomegaly other proportion to sulcal dilation, mildly increased compared with prior examination. Nonspecific periventricular hypodensities may reflect chronic isch emic disease of the white matter. Cerebral volume loss. Redemonstration of partially calcified mass anterior to medulla measuring 1.1 cm, likely representing an aneurysm may represent a basilar aneury sm or posterior inferior cerebellar artery aneurysm. Redemonstration of questionable basilar tip ane urysm. There is no depressed calvarial fracture. Similar scattered sclerotic foci in the calvarium. The mastoid air cells are clear. The visualized paranasal sinuses are clear. There are intracrania l atherosclerotic calcifications. IMPRESSION: 1. No acute intracranial hemorrhage or midline shift. 2. Redemonstration of ventriculomegaly other proportion to sulcal dilation, mildly increased compare d with prior examination. Differential diagnosis includes normal-pressure or communicating hydroceph alus. 3. Redemonstration of partially calcified mass anterior to medulla measuring 1.1 cm, likely represen ting an aneurysm may represent a basilar aneurysm or posterior inferior cerebellar artery aneurysm. Redemonstration of questionable basilar tip aneurysm. Recommend correlation with dedicated CT angiog shaila head. 4. Nonspecific periventricular hypodensities may reflect chronic ischemic disease of the white matte r. Cerebral volume loss. 5. Similar scattered sclerotic foci in the calvarium. Finding is indeterminate. Changes of Paget's disease, fibrous dysplasia, or metastatic disease are within the differential diagnosis. All CT scans are performed using dose optimization techniques as appropriate to the performed exam an d include at least one of the following: Automated exposure control, adjustment of the mA and/or kV according t o size, and the use of iterative reconstruction technique.
--- NOTE | 2020-09-03 13:47 | CT ---
EXAM: CT Abdomen without contrast. CT Pelvis without contrast. HISTORY: Right lateral abdominal pain. Elevated alkaline phosphatase. COMPARISON: 07/06/2019, 06/08/2019. TECHNIQUE: Multiple axial images of the abdomen and pelvis were obtained without intravenous contras t. Images were reformatted in the sagittal and coronal plane. FINDINGS: Please note that evaluation of the abdominal and pelvic structures is limited due to lack of intravenous contrast. Trace bilateral pleural effusions with dependent consolidation in the left greater than right lower l obes noted. Innumerable sclerotic lesions seen throughout the osseous structures with associated coarsening of th e trabecular markings and cortical thickening. This involves numerous thoracolumbar vertebral bodies as well as the sacrum, left iliac bone and both femurs and appears similar to the prior the examinat ion. Multilevel vertebral compression deformities are stable. Previously noted biliary stent no longer present. Biliary dilatation, greatest in the posterior righ t lobe has probably increased since prior study. Difficult to exclude a few discrete low-density nicolás er lesions. Gallbladder contracted. The pancreas, spleen, adrenal glands, and kidneys demonstrate n o acute abnormality. There is no evidence for bowel obstruction or acute inflammation. Appendix is normal. Probable subc utaneous injection sites in the anterior abdomen. Bladder normal. No focal prostate abnormalities seen. Phleboliths in the pelvis. Atherosclerotic c alcifications present. There is no free air. IMPRESSION: 1. Previously noted biliary stent no longer present. There is increase in intrahepatic biliary dila tation since the prior study. Consider MRI / MRCP for further evaluation. 2. Stable osseous findings which suggest multifocal Paget's disease given chronicity and stability. 3. Trace bilateral pleural effusions with bilateral lower lobe atelectasis or pneumonia. All CT scans are performed using dose optimization techniques as appropriate to the performed exam an d include at least one of the following: Automated exposure control, adjustment of the mA and/or kV according t o size, and the use of iterative reconstruction technique.
[2020-09-03] MEDS: LIPITOR PO SCH (20:33)
[2020-09-04] MEDS: SOLU-MEDROL 125 MG IVP SCH ×4 (00:04→17:02)
[2020-09-04] MEDS: VENTOLIN HFA (PER PUFF-WITH SPACER) IH SCH ×3 (05:07→17:12)
[2020-09-04] MEDS: ATROVENT HFA INHALER (PER PUFF-WITH SPACER) IH SCH ×3 (05:07→17:13)
[2020-09-04] MEDS: LASIX TAB PO SCH (05:35)
[2020-09-04] MEDS: PRILOSEC PO SCH ×2 (05:35→17:02)
[2020-09-04] MEDS: CARDIZEM CD PO SCH (08:37)
[2020-09-04] MEDS: ASPIRIN EC PO SCH (08:38)
[2020-09-04] MEDS: ROCEPHIN 1 GM/50 ML D5W 1 GM/50 ML BAG IV SCH (08:38)
[2020-09-04] MEDS: ZESTRIL PO SCH (08:38)
[2020-09-04] MEDS: LOVENOX SUBCUT SCH (08:40)
[2020-09-04] MEDS: ALENDRONATE PO SCH (08:57)
[2020-09-04] MEDS: SODIUM CHLORIDE 1,000 ML IV SCH (12:45)
[2020-09-04 14:08] VITALS: BP 112/74; TEMP 97.7
== END 2020-09-04 17:25 | disposition short-term general hospital (02) ==
LOC: ED 15:45 → INTOOBSV 19:48 → MEDSURG A 19:48
PROVIDERS: ADMIT Family Medicine; ATTEND Family Medicine
DX: R11.0 Nausea; I10 Essential (primary) hypertension; B34.9 Viral infection, unspecified; R06.02 Shortness of breath; Z20.822 Contact with and (suspected) exposure to COVID-19; R00.2 Palpitations; G91.9 Hydrocephalus, unspecified; R50.9 Fever, unspecified; M88.9 Osteitis deformans of unspecified bone; I49.5 Sick sinus syndrome; R53.1 Weakness; R06.2 Wheezing